=== PATIENT | male | born 1995 ===

== ENCOUNTER 2020-11-30 06:52 | Inpatient (IN) | payer OTHER ==
[~2020-11-30] VITALS: Ht 157.5 cm; Wt 40.8 kg
[2020-11-30] MEDS ORDERED: ZITHROMAX500 MG PO (10:00)
[2020-12-12] MEDS ORDERED: MONODOX100 MG PO (19:39)
[2020-12-12] MEDS ORDERED: INTESTINEX680 M1 PO (19:39)
[2020-12-12] MEDS ORDERED: PEPCID20 MG PO (19:39)
[2020-12-12] MEDS ORDERED: BENZONATATE200 M1 PO (19:39)
[2020-12-12] MEDS ORDERED: LEVOFLOXACIN750 MG PO (19:39)
[2020-12-12] MEDS ORDERED: KEPPRA500 MG PO (19:39)
== END 2020-12-12 22:09 | disposition home or self-care (01) | DRG 197 ==
LOC: ER 06:52 → SEC-K 20:51 → MEDJ 20:51
PROVIDERS: ADMIT Internal Medicine; ATTEND Internal Medicine
PROC: BW24ZZZ Computerized Tomography (CT Scan) of Chest and Abdomen (ICD-10-PCS; 2020-11-30)
PROC: 0BBG3ZX Excision of Left Upper Lung Lobe, Percutaneous Approach, Diagnostic (ICD-10-PCS; principal; 2020-12-07)
DX: J84.116 Cryptogenic organizing pneumonia (principal); R04.2 Hemoptysis; Z20.822 Contact with and (suspected) exposure to COVID-19